=== PATIENT | female | born 1970 | race Caucasian/White ===

== ENCOUNTER 2021-07-22 11:07 | Inpatient (IN) ==
[2021-07-22] MEDS ORDERED: Mag Hydrox/Al Hydrox/Simeth 30 ML UDC PO PRN (13:41)
[2021-07-22] MEDS ORDERED: Melatonin 3 MG TABLET PO PRN (13:41)
[2021-07-22] MEDS ORDERED: Naloxone 0.4 MG/ML INJ IVP PRN (13:41)
[2021-07-22] MEDS ORDERED: Remdesivir 200 MG in 0.9 % Sodium Chloride 100 ML IVPB ONE (14:44)
[2021-07-22] MEDS: Ipratropium 1 PUFF INHALER IH SCH ×2 (15:30→21:30)
[2021-07-22] MEDS: Furosemide 20 MG/2 ML VIAL IVP SCH (17:35)
[2021-07-22 18:02] LABS: C-Reactive Protein 89 mg/L (Less than 10); Lactate Dehydrogenase 433 Units/L (140-271)
[2021-07-22 18:21] LABS: Ferritin 611 ng/mL (10-120)
[2021-07-23] MEDS: clonazePAM 1 MG TABLET PO PRN ×3 (00:20→17:54)
[2021-07-23] MEDS: Ipratropium 1 PUFF INHALER IH SCH ×7 (01:14→23:45)
[2021-07-23 05:24] LABS: Basophils % 0.1 %; Hematocrit 41.9 % (35.3-44.9); Hemoglobin 13.5 g/dL (11.5-15.4); Immature Granulocytes % 0.3 % (0-4); Lymphocytes # 0.5 K/mcL (0.6-4.6); Lymphocytes % 6.4 %; Mean Corpuscular HGB Conc 32.2 g/dL (31.6-35.5); Mean Corpuscular Hemoglobin 27.7 pg (28.0-33.3); Mean Platelet Volume 10.6 fL (9.4-12.4); Monocytes # 0.4 K/mcL (0.0-1.3); Monocytes % 5.5 %; Neutrophils # 6.2 K/mcL (1.6-8.9); Platelet Count 151 K/mcL (140-400); Red Blood Count 4.87 M/mcL (3.82-4.97); Segmented Neutrophils % 87.7 %; White Blood Count 7.1 K/mcL (4.3-11.1)
[2021-07-23 05:47] LABS: Alanine Aminotransferase 27 Units/L (7-52); Albumin 3.3 g/dL (3.5-5.7); Albumin/Globulin Ratio 1.1 (1.1-2.2); Alkaline Phosphatase 45 Units/L (34-104); Aspartate Amino Transferase 34 Units/L (13-39); BUN/Creatinine Ratio 19 (6-26); Bilirubin,Direct 0.1 mg/dL (0.0-0.2); Bilirubin,Indirect 0.4 mg/dL (0.0-1.0); Bilirubin,Total 0.5 mg/dL (0.3-1.0); Blood Urea Nitrogen 17 mg/dL (6-20); Calcium 8.5 mg/dL (8.6-10.3); Carbon Dioxide 34 mEq/L (23-29); Chloride 97 mEq/L (98-107); Globulin 2.9 g/dL (2.4-3.5); Glucose 129 mg/dL (70-105); Osmolality,Calculated 293 (280-300); Potassium 3.2 mEq/L (3.5-5.1); Sodium 140 mEq/L (136-145); Total Protein 6.2 g/dL (6.4-8.9); eGFR For African Americans > 60 (> 60); eGFR For Non-African Americans > 60 (> 60)
[2021-07-23] MEDS: *HR* Enoxaparin 40 MG/0.4 ML SYRINGE SQ SCH (06:26)
[2021-07-23] MEDS: Furosemide 20 MG/2 ML VIAL IVP SCH (08:35)
[2021-07-23] MEDS: Aspirin Enteric Coated 81 MG Tablet PO SCH (08:35)
[2021-07-23] MEDS: Ondansetron ODT 4 MG TAB.RAPDIS SL PRN (12:01)
[2021-07-23] MEDS ORDERED: clonazePAM 1 MG TABLET PO PRN (14:49)
[2021-07-23] MEDS ORDERED: TOCILIZUMAB 810 MG in 0.9 % Sodium Chloride 95.5 ML IVPB ONE (16:00)
[2021-07-23] MEDS: Remdesivir 100 MG in 0.9 % Sodium Chloride 100 ML IVPB SCH (16:04)
[2021-07-23 18:34] LABS: C-Reactive Protein 115 mg/L (Less than 10)
[2021-07-24] MEDS: clonazePAM 1 MG TABLET PO PRN ×3 (01:31→23:08)
[2021-07-24] MEDS: Ondansetron ODT 4 MG TAB.RAPDIS SL PRN (01:32)
[2021-07-24] MEDS: Ipratropium 1 PUFF INHALER IH SCH ×6 (04:47→23:06)
[2021-07-24] MEDS: *HR* Enoxaparin 40 MG/0.4 ML SYRINGE SQ SCH (06:26)
[2021-07-24 08:19] LABS: Basophils % 0.5 %; Hematocrit 45.7 % (35.3-44.9); Hemoglobin 13.9 g/dL (11.5-15.4); Immature Granulocytes % 0.5 % (0-4); Lymphocytes # 0.8 K/mcL (0.6-4.6); Lymphocytes % 12.4 %; Mean Corpuscular HGB Conc 30.4 g/dL (31.6-35.5); Mean Corpuscular Hemoglobin 27.5 pg (28.0-33.3); Mean Corpuscular Volume 90.3 fL (83.0-100.0); Mean Platelet Volume 10.7 fL (9.4-12.4); Monocytes # 0.5 K/mcL (0.0-1.3); Monocytes % 7.2 %; Platelet Count 150 K/mcL (140-400); Red Blood Count 5.06 M/mcL (3.82-4.97); Red Cell Distribution Width 14.3 % (11.5-14.5); Segmented Neutrophils % 79.4 %; White Blood Count 6.4 K/mcL (4.3-11.1)
[2021-07-24 08:25] LABS: Neutrophils # 5.1 K/mcL (1.6-8.9)
[2021-07-24] MEDS: Aspirin Enteric Coated 81 MG Tablet PO SCH (08:51)
[2021-07-24] MEDS: Furosemide 20 MG/2 ML VIAL IVP SCH (08:51)
[2021-07-24 09:08] LABS: Platelet Estimate Normal (Normal)
[2021-07-24] MEDS: GuaiFENesin Liq 200 MG/10 ML UDC PO SCH ×2 (11:38→19:07)
[2021-07-24 11:57] LABS: D-Dimer 6985 ng/mLFEU (0-500)
[2021-07-24 12:13] LABS: Alanine Aminotransferase 38 Units/L (7-52); Albumin 3.2 g/dL (3.5-5.7); Albumin/Globulin Ratio 1.1 (1.1-2.2); Alkaline Phosphatase 52 Units/L (34-104); Aspartate Amino Transferase 41 Units/L (13-39); BUN/Creatinine Ratio 25 (6-26); Bilirubin,Direct 0.2 mg/dL (0.0-0.2); Bilirubin,Indirect 0.4 mg/dL (0.0-1.0); Bilirubin,Total 0.6 mg/dL (0.3-1.0); Blood Urea Nitrogen 23 mg/dL (6-20); C-Reactive Protein 147 mg/L (Less than 10); Calcium 8.2 mg/dL (8.6-10.3); Carbon Dioxide 35 mEq/L (23-29); Chloride 97 mEq/L (98-107); Glucose 138 mg/dL (70-105); Lactate Dehydrogenase 618 Units/L (140-271); Osmolality,Calculated 296 (280-300); Potassium 3.3 mEq/L (3.5-5.1); Sodium 140 mEq/L (136-145); Total Protein 6.2 g/dL (6.4-8.9); eGFR For African Americans > 60 (> 60); eGFR For Non-African Americans > 60 (> 60)
[2021-07-24 12:29] LABS: Ferritin 1070 ng/mL (10-120)
[2021-07-24 13:17] LABS: Fibrinogen 537 mg/dL (169-393)
[2021-07-24] MEDS ORDERED: Isovue-370 500 ML BOTTLE IVP ONE (13:35)
[2021-07-24] MEDS: Remdesivir 100 MG in 0.9 % Sodium Chloride 100 ML IVPB SCH (16:27)
[2021-07-25] MEDS: GuaiFENesin Liq 200 MG/10 ML UDC PO SCH ×4 (01:09→17:18)
[2021-07-25] MEDS: Ipratropium 1 PUFF INHALER IH SCH ×6 (03:44→23:18)
[2021-07-25] MEDS: *HR* Enoxaparin 40 MG/0.4 ML SYRINGE SQ SCH (05:57)
[2021-07-25 06:15] LABS: Basophils % 0.1 %; Hematocrit 40.5 % (35.3-44.9); Immature Granulocytes % 0.6 % (0-4); Lymphocytes # 0.6 K/mcL (0.6-4.6); Lymphocytes % 8.6 %; Mean Corpuscular HGB Conc 32.1 g/dL (31.6-35.5); Mean Corpuscular Hemoglobin 27.7 pg (28.0-33.3); Mean Corpuscular Volume 86.4 fL (83.0-100.0); Mean Platelet Volume 10.7 fL (9.4-12.4); Monocytes # 0.5 K/mcL (0.0-1.3); Monocytes % 6.7 %; Neutrophils # 5.7 K/mcL (1.6-8.9); Platelet Count 153 K/mcL (140-400); Red Blood Count 4.69 M/mcL (3.82-4.97); Red Cell Distribution Width 13.8 % (11.5-14.5); White Blood Count 6.8 K/mcL (4.3-11.1)
[2021-07-25 07:07] LABS: Platelet Estimate Normal (Normal)
[2021-07-25 07:52] LABS: Alanine Aminotransferase 32 Units/L (7-52); Albumin 3.1 g/dL (3.5-5.7); Albumin/Globulin Ratio 1.5 (1.1-2.2); Alkaline Phosphatase 58 Units/L (34-104); Aspartate Amino Transferase 35 Units/L (13-39); BUN/Creatinine Ratio 26 (6-26); Bilirubin,Direct 0.2 mg/dL (0.0-0.2); Bilirubin,Indirect 0.4 mg/dL (0.0-1.0); Bilirubin,Total 0.6 mg/dL (0.3-1.0); Blood Urea Nitrogen 22 mg/dL (6-20); Calcium 8.2 mg/dL (8.6-10.3); Carbon Dioxide 34 mEq/L (23-29); Chloride 98 mEq/L (98-107); Globulin 2.1 g/dL (2.4-3.5); Glucose 133 mg/dL (70-105); Osmolality,Calculated 293 (280-300); Potassium 3.6 mEq/L (3.5-5.1); Sodium 139 mEq/L (136-145); Total Protein 5.2 g/dL (6.4-8.9); eGFR For African Americans > 60 (> 60); eGFR For Non-African Americans > 60 (> 60)
[2021-07-25] MEDS: Furosemide 20 MG/2 ML VIAL IVP SCH ×2 (08:56→11:30)
[2021-07-25] MEDS: Aspirin Enteric Coated 81 MG Tablet PO SCH (08:56)
[2021-07-25] MEDS: clonazePAM 1 MG TABLET PO PRN ×2 (08:57→17:18)
[2021-07-25] MEDS: Remdesivir 100 MG in 0.9 % Sodium Chloride 100 ML IVPB SCH (15:52)
[2021-07-26] MEDS: GuaiFENesin Liq 200 MG/10 ML UDC PO SCH ×5 (05:02→23:23)
[2021-07-26] MEDS: *HR* Enoxaparin 40 MG/0.4 ML SYRINGE SQ SCH (05:11)
[2021-07-26] MEDS: Ipratropium 1 PUFF INHALER IH SCH ×6 (05:12→23:34)
[2021-07-26] MEDS ORDERED: *HR* LORazepam 2 MG/ML VIAL IVP PRN (06:19)
[2021-07-26 07:40] LABS: Hemoglobin 13.3 g/dL (11.5-15.4); Red Cell Distribution Width 13.7 % (11.5-14.5)
[2021-07-26 07:43] LABS: Hematocrit 40.8 % (35.3-44.9); Immature Platelets 8.2 % (1.1-6.1); Lymphocytes # 0.6 K/mcL (0.6-4.6); Mean Corpuscular HGB Conc 32.6 g/dL (31.6-35.5); Mean Corpuscular Hemoglobin 27.7 pg (28.0-33.3)
[2021-07-26 08:09] LABS: Platelet Count 93 K/mcL (140-400)
[2021-07-26 09:14] LABS: Eosinophils # 0.1 K/mcL (0.0-0.6); Monocytes # 0.1 K/mcL (0.0-1.3); Neutrophils # 7.3 K/mcL (1.6-8.9); Platelet Estimate Slight Decrease (Normal); Reactive Lymphocytes Present (Not Present)
[2021-07-26] MEDS: Aspirin Enteric Coated 81 MG Tablet PO SCH (09:50)
[2021-07-26] MEDS: Furosemide 20 MG/2 ML VIAL IVP SCH (09:51)
[2021-07-26 10:56] LABS: Ferritin 934 ng/mL (10-120)
[2021-07-26 10:59] LABS: Albumin 2.9 g/dL (3.5-5.7); Albumin/Globulin Ratio 1.1 (1.1-2.2); Bilirubin,Direct 0.3 mg/dL (0.0-0.2); Bilirubin,Indirect 0.8 mg/dL (0.0-1.0); Bilirubin,Total 1.1 mg/dL (0.3-1.0); Globulin 2.6 g/dL (2.4-3.5); Total Protein 5.5 g/dL (6.4-8.9)
[2021-07-26 11:01] LABS: Phosphorous 3.3 mg/dL (2.7-4.5)
[2021-07-26] MEDS ORDERED: *HR* Heparin 5,000 UNIT/ML VIAL IVP PRN ×4 (11:45→13:04)
[2021-07-26] MEDS ORDERED: Heparin 25,000UNIT/250ML 1/2NS 25,000 UNIT/250 ML IV.SOLN IVC SCH (11:45)
[2021-07-26 12:58] LABS: Magnesium 2.4 mg/dL (1.6-2.6)
[2021-07-26] MEDS ORDERED: *HR* Enoxaparin 150 MG/ML SYRINGE SQ SCH (13:00)
[2021-07-26] MEDS ORDERED: Lidocaine -MPF 1% 5 ML AMPUL INFILT ONE (14:00)
[2021-07-26 14:42] LABS: Calcium 7.7 mg/dL (8.6-10.3)
[2021-07-26 14:43] LABS: BUN/Creatinine Ratio 30 (6-26); Blood Urea Nitrogen 27 mg/dL (6-20); Carbon Dioxide 31 mEq/L (23-29); Chloride 98 mEq/L (98-107); Glucose 122 mg/dL (70-105); Lactate Dehydrogenase 1003 Units/L (140-271); Osmolality,Calculated 296 (280-300); Potassium 3.5 mEq/L (3.5-5.1); Sodium 140 mEq/L (136-145); eGFR For African Americans > 60 (> 60); eGFR For Non-African Americans > 60 (> 60)
[2021-07-26 15:27] LABS: C-Reactive Protein 43 mg/L (Less than 10)
[2021-07-26] MEDS ORDERED: Midazolam HCl 50 MG/100 ML IV.SOLN IVC SCH (15:30)
[2021-07-26] MEDS ORDERED: Artificial Tears SOLN 15 ML BOTTLE BOTH EYES PRN (15:30)
[2021-07-26] MEDS ORDERED: FentaNYL (PF) 1,000 MCG/100 ML IV.SOLN IVC SCH (15:30)
[2021-07-26] MEDS ORDERED: Cisatracurium 200 MG in 0.9 % Sodium Chloride 180 ML IVC SCH (15:45)
[2021-07-26] MEDS: Heparin 25,000UNIT/250ML 1/2NS 25,000 UNIT/250 ML IV.SOLN IVC SCH (17:00)
[2021-07-26] MEDS: Dexmedetomidine HCl 400 MCG/100 ML MLS IVC SCH (17:46)
[2021-07-26] MEDS: Artificial Tears SOLN 15 ML BOTTLE BOTH EYES SCH ×3 (17:47→23:23)
[2021-07-26] MEDS: Chlorhexidine Rinse 15 ML MOUTHWASH MM SCH (19:46)
[2021-07-27] MEDS: Dexmedetomidine HCl 400 MCG/100 ML MLS IVC SCH ×3 (01:33→17:01)
[2021-07-27] MEDS: Ipratropium 1 PUFF INHALER IH SCH ×6 (03:31→23:29)
[2021-07-27] MEDS: Artificial Tears SOLN 15 ML BOTTLE BOTH EYES SCH ×6 (04:19→23:05)
[2021-07-27 04:22] LABS: Basophils % 0.3 %; Hemoglobin 13.9 g/dL (11.5-15.4); Mean Corpuscular HGB Conc 33.1 g/dL (31.6-35.5); Red Cell Distribution Width 13.7 % (11.5-14.5)
[2021-07-27 04:25] LABS: Eosinophils % 0.3 %; Immature Granulocytes % 1.9 % (0-4); Immature Platelets 7.5 % (1.1-6.1); Lymphocytes # 0.6 K/mcL (0.6-4.6); Lymphocytes % 7.7 %; Mean Corpuscular Volume 84.7 fL (83.0-100.0); Mean Platelet Volume 11.6 fL (9.4-12.4); Monocytes # 0.2 K/mcL (0.0-1.3); Monocytes % 2.7 %; Neutrophils # 6.8 K/mcL (1.6-8.9); Platelet Count 104 K/mcL (140-400); Red Blood Count 4.96 M/mcL (3.82-4.97); Segmented Neutrophils % 87.1 %; White Blood Count 7.8 K/mcL (4.3-11.1)
[2021-07-27] MEDS: GuaiFENesin Liq 200 MG/10 ML UDC PO SCH ×4 (04:32→19:27)
[2021-07-27 04:47] LABS: Alanine Aminotransferase 26 Units/L (7-52); Albumin 2.9 g/dL (3.5-5.7); Albumin/Globulin Ratio 1.3 (1.1-2.2); Alkaline Phosphatase 90 Units/L (34-104); Aspartate Amino Transferase 35 Units/L (13-39); BUN/Creatinine Ratio 35 (6-26); Bilirubin,Total 0.8 mg/dL (0.3-1.0); Blood Urea Nitrogen 29 mg/dL (6-20); Calcium 7.5 mg/dL (8.6-10.3); Carbon Dioxide 34 mEq/L (23-29); Chloride 100 mEq/L (98-107); Globulin 2.2 g/dL (2.4-3.5); Glucose 140 mg/dL (70-105); Lactate Dehydrogenase 994 Units/L (140-271); Osmolality,Calculated 298 (280-300); Potassium 3.6 mEq/L (3.5-5.1); Sodium 140 mEq/L (136-145); Total Protein 5.1 g/dL (6.4-8.9); eGFR For African Americans > 60 (> 60); eGFR For Non-African Americans > 60 (> 60)
[2021-07-27 05:03] LABS: Ferritin 1052 ng/mL (10-120)
[2021-07-27] MEDS: Heparin 25,000UNIT/250ML 1/2NS 25,000 UNIT/250 ML IV.SOLN IVC SCH ×3 (08:33→21:11)
[2021-07-27] MEDS: Aspirin Enteric Coated 81 MG Tablet PO SCH (08:34)
[2021-07-27] MEDS: Pantoprazole 40 MG VIAL IVP SCH (08:38)
[2021-07-27] MEDS: Chlorhexidine Rinse 15 ML MOUTHWASH MM SCH ×2 (08:38→19:20)
[2021-07-27] MEDS: Furosemide 20 MG/2 ML VIAL IVP SCH (08:38)
[2021-07-27] MEDS ORDERED: Furosemide 20 MG/2 ML VIAL IVP ONE (09:46)
[2021-07-27] MEDS ORDERED: Perflutren Lipid Microsphere 1.3 ML in 0.9 % Sodium Chloride 8.7 ML IVP PRN (11:33)
[2021-07-27] MEDS ORDERED: Artificial Tears SOLN 15 ML BOTTLE BOTH EYES PRN (11:34)
[2021-07-27] MEDS ORDERED: Artificial Tears SOLN 15 ML BOTTLE BOTH EYES SCH (12:00)
[2021-07-27] MEDS: Cisatracurium 200 MG in 0.9 % Sodium Chloride 180 ML IVC SCH ×2 (13:10→20:02)
[2021-07-27] MEDS: Midazolam HCl 50 MG/100 ML IV.SOLN IVC SCH (13:10)
[2021-07-27] MEDS: FentaNYL (PF) 1,000 MCG/100 ML IV.SOLN IVC SCH ×2 (13:10→21:08)
[2021-07-27 13:44] LABS: ABG Base Excess 7 mEq/L (-2 to 3); ABG HCO3 34 mEq/L (21-27); ABG Oxygen Saturation 93 % (95-98); ABG PCO2 56 mmHg (35-45); ABG PH 7.39 pH Units (7.32-7.45); ABG PO2 69 mmHg (85-104); ABG TCO2 35 mEq/L (20-26); Blood Gas Modality ASSIST CONTROL; Blood Gas VT 430 cc
[2021-07-27] MEDS: Norepinephrine 4 MG/254 ML IV.SOLN IVC SCH ×2 (16:10→17:02)
[2021-07-27 17:00] LABS: Magnesium 2.4 mg/dL (1.6-2.6)
[2021-07-27] MEDS: Furosemide 40 MG/4 ML VIAL IVP SCH (19:20)
[2021-07-27] MEDS: Budesonide/Formoterol 160/4.5 1 PUFF INH IH SCH (20:15)
[2021-07-27] MEDS ORDERED: Chlorhexidine Rinse 15 ML MOUTHWASH MM SCH (21:00)
[2021-07-27 23:34] LABS: ABG Base Excess 7 mEq/L (-2 to 3); ABG HCO3 35 mEq/L (21-27); ABG Oxygen Saturation 94 % (95-98); ABG PCO2 62 mmHg (35-45); ABG PH 7.36 pH Units (7.32-7.45); ABG PO2 76 mmHg (85-104); ABG TCO2 37 mEq/L (20-26); Blood Gas VT 430 cc
[2021-07-28] MEDS: Artificial Tears SOLN 15 ML BOTTLE BOTH EYES SCH ×6 (03:04→23:00)
[2021-07-28 03:20] LABS: Eosinophils % 0.5 %; Hemoglobin 13.7 g/dL (11.5-15.4)
[2021-07-28 03:22] LABS: Basophils % 0.2 %; Hematocrit 41.9 % (35.3-44.9); Immature Platelets 5.2 % (1.1-6.1); Lymphocytes # 0.5 K/mcL (0.6-4.6); Lymphocytes % 6.3 %; Mean Corpuscular HGB Conc 32.7 g/dL (31.6-35.5); Mean Corpuscular Hemoglobin 27.8 pg (28.0-33.3); Mean Corpuscular Volume 85.2 fL (83.0-100.0); Monocytes # 0.2 K/mcL (0.0-1.3); Monocytes % 2.6 %; Neutrophils # 7.3 K/mcL (1.6-8.9); Platelet Count 133 K/mcL (140-400); Red Blood Count 4.92 M/mcL (3.82-4.97); Red Cell Distribution Width 13.7 % (11.5-14.5); Segmented Neutrophils % 85.4 %; White Blood Count 8.6 K/mcL (4.3-11.1)
[2021-07-28] MEDS: Ipratropium 1 PUFF INHALER IH SCH ×5 (03:27→19:26)
[2021-07-28 03:35] LABS: BUN/Creatinine Ratio 40 (6-26); Blood Urea Nitrogen 33 mg/dL (6-20); Calcium 7.6 mg/dL (8.6-10.3); Carbon Dioxide 36 mEq/L (23-29); Chloride 98 mEq/L (98-107); Glucose 147 mg/dL (70-105); Magnesium 2.5 mg/dL (1.6-2.6); Osmolality,Calculated 302 (280-300); Phosphorous 4.2 mg/dL (2.7-4.5); Potassium 3.4 mEq/L (3.5-5.1); Sodium 141 mEq/L (136-145); eGFR For African Americans > 60 (> 60); eGFR For Non-African Americans > 60 (> 60)
[2021-07-28] MEDS: Cisatracurium 200 MG in 0.9 % Sodium Chloride 180 ML IVC SCH ×3 (04:00→20:39)
[2021-07-28 04:10] LABS: ABG Base Excess 8 mEq/L (-2 to 3); ABG HCO3 35 mEq/L (21-27); ABG Oxygen Saturation 91 % (95-98); ABG PCO2 55 mmHg (35-45); ABG PH 7.41 pH Units (7.32-7.45); ABG PO2 62 mmHg (85-104); ABG TCO2 36 mEq/L (20-26); Blood Gas VT 430 cc
[2021-07-28] MEDS: Dexmedetomidine HCl 400 MCG/100 ML MLS IVC SCH ×2 (05:02→19:09)
[2021-07-28] MEDS ORDERED: Potassium Chloride Elixir 20 MEQ/15 ML UDC GTUBE ONE (06:15)
[2021-07-28] MEDS: FentaNYL (PF) 1,000 MCG/100 ML IV.SOLN IVC SCH ×2 (06:41→16:41)
[2021-07-28] MEDS: Budesonide/Formoterol 160/4.5 1 PUFF INH IH SCH ×2 (07:36→19:26)
[2021-07-28] MEDS: Aspirin Enteric Coated 81 MG Tablet PO SCH (08:29)
[2021-07-28] MEDS: Dexamethasone Sodium Phos/PF 10 MG/ML VIAL IVP SCH (08:29)
[2021-07-28] MEDS: Chlorhexidine Rinse 15 ML MOUTHWASH MM SCH ×2 (08:29→19:39)
[2021-07-28] MEDS: Furosemide 40 MG/4 ML VIAL IVP SCH ×2 (08:30→19:39)
[2021-07-28] MEDS: Pantoprazole 40 MG VIAL IVP SCH (08:31)
[2021-07-28] MEDS: GuaiFENesin Liq 200 MG/10 ML UDC PO SCH ×3 (12:16→22:56)
[2021-07-28] MEDS: Midazolam HCl 50 MG/100 ML IV.SOLN IVC SCH (13:00)
[2021-07-28] MEDS ORDERED: 0.9 % Sodium Chloride 1,000 ML ONE (14:12)
[2021-07-28 17:09] LABS: BUN/Creatinine Ratio 34 (6-26); Blood Urea Nitrogen 30 mg/dL (6-20); Calcium 7.2 mg/dL (8.6-10.3); Carbon Dioxide 32 mEq/L (23-29); Chloride 99 mEq/L (98-107); Glucose 171 mg/dL (70-105); Osmolality,Calculated 302 (280-300); Sodium 141 mEq/L (136-145); eGFR For African Americans > 60 (> 60); eGFR For Non-African Americans > 60 (> 60)
[2021-07-28] MEDS ORDERED: *HR* Rocuronium Bromide 50 MG/5 ML VIAL IVP ONE (18:34)
[2021-07-28] MEDS ORDERED: *HR* Succinylcholine 200 MG/10 ML VIAL IVP ONE (18:34)
[2021-07-28] MEDS ORDERED: *HR* Midazolam HCl 2 MG/2 ML VIAL IVP ONE (18:34)
[2021-07-28] MEDS: Heparin 25,000UNIT/250ML 1/2NS 25,000 UNIT/250 ML IV.SOLN IVC SCH ×2 (19:09→23:00)
[2021-07-29] MEDS: Ipratropium 1 PUFF INHALER IH SCH ×7 (00:12→23:45)
[2021-07-29] MEDS: FentaNYL (PF) 1,000 MCG/100 ML IV.SOLN IVC SCH ×3 (02:03→23:06)
[2021-07-29] MEDS: Artificial Tears SOLN 15 ML BOTTLE BOTH EYES SCH ×6 (03:05→23:06)
[2021-07-29] MEDS: Cisatracurium 200 MG in 0.9 % Sodium Chloride 180 ML IVC SCH ×3 (03:14→20:01)
[2021-07-29] MEDS: Midazolam HCl 50 MG/100 ML IV.SOLN IVC SCH ×2 (03:15→19:30)
[2021-07-29 03:26] LABS: Basophils # 0.1 K/mcL (0.0-0.2); Basophils % 0.6 %; Eosinophils # 0.1 K/mcL (0.0-0.6); Eosinophils % 0.6 %; Hematocrit 43.4 % (35.3-44.9); Hemoglobin 14.1 g/dL (11.5-15.4); Immature Granulocytes % 5.3 % (0-4); Lymphocytes # 0.8 K/mcL (0.6-4.6); Lymphocytes % 5.2 %; Mean Corpuscular HGB Conc 32.5 g/dL (31.6-35.5); Mean Corpuscular Volume 86.1 fL (83.0-100.0); Monocytes # 0.5 K/mcL (0.0-1.3); Monocytes % 3.1 %; Neutrophils # 13.6 K/mcL (1.6-8.9); Nucleated Red Blood Cells 0.1 /100 WBC (0); Platelet Count 193 K/mcL (140-400); Red Blood Count 5.04 M/mcL (3.82-4.97); Segmented Neutrophils % 85.2 %
[2021-07-29 03:37] LABS: White Blood Count 15.9 K/mcL (4.3-11.1)
[2021-07-29 03:38] LABS: Alanine Aminotransferase 118 Units/L (7-52); Albumin 3.2 g/dL (3.5-5.7); Albumin/Globulin Ratio 1.5 (1.1-2.2); Alkaline Phosphatase 101 Units/L (34-104); Aspartate Amino Transferase 57 Units/L (13-39); BUN/Creatinine Ratio 41 (6-26); Blood Urea Nitrogen 35 mg/dL (6-20); Calcium 7.7 mg/dL (8.6-10.3); Carbon Dioxide 34 mEq/L (23-29); Chloride 99 mEq/L (98-107); Globulin 2.1 g/dL (2.4-3.5); Glucose 161 mg/dL (70-105); Magnesium 2.7 mg/dL (1.6-2.6); Osmolality,Calculated 303 (280-300); Phosphorous 3.5 mg/dL (2.7-4.5); Potassium 3.9 mEq/L (3.5-5.1); Sodium 141 mEq/L (136-145); Total Protein 5.3 g/dL (6.4-8.9); eGFR For African Americans > 60 (> 60); eGFR For Non-African Americans > 60 (> 60)
[2021-07-29 04:18] LABS: Platelet Estimate Normal (Normal)
[2021-07-29 04:39] LABS: ABG Base Excess 8 mEq/L (-2 to 3); ABG HCO3 35 mEq/L (21-27); ABG Oxygen Saturation 94 % (95-98); ABG PCO2 54 mmHg (35-45); ABG PH 7.42 pH Units (7.32-7.45); ABG PO2 72 mmHg (85-104); ABG TCO2 37 mEq/L (20-26); Blood Gas VT 430 cc
[2021-07-29] MEDS: Budesonide/Formoterol 160/4.5 1 PUFF INH IH SCH ×2 (07:57→19:57)
[2021-07-29] MEDS: Furosemide 40 MG/4 ML VIAL IVP SCH ×2 (08:33→19:31)
[2021-07-29] MEDS: Aspirin Enteric Coated 81 MG Tablet PO SCH (08:33)
[2021-07-29] MEDS: Dexamethasone Sodium Phos/PF 10 MG/ML VIAL IVP SCH (08:33)
[2021-07-29] MEDS: Pantoprazole 40 MG VIAL IVP SCH (08:33)
[2021-07-29] MEDS: Chlorhexidine Rinse 15 ML MOUTHWASH MM SCH ×2 (08:34→19:31)
[2021-07-29] MEDS: Dexmedetomidine HCl 400 MCG/100 ML MLS IVC SCH ×2 (09:20→17:35)
[2021-07-29] MEDS: GuaiFENesin Liq 200 MG/10 ML UDC PO SCH ×3 (15:45→20:00)
[2021-07-29] MEDS: Norepinephrine 4 MG/254 ML IV.SOLN IVC SCH (19:01)
[2021-07-29] MEDS: Heparin 25,000UNIT/250ML 1/2NS 25,000 UNIT/250 ML IV.SOLN IVC SCH (19:02)
[2021-07-30] MEDS: Cisatracurium 200 MG in 0.9 % Sodium Chloride 180 ML IVC SCH ×3 (03:21→22:03)
[2021-07-30] MEDS: Artificial Tears SOLN 15 ML BOTTLE BOTH EYES SCH ×6 (03:21→23:55)
[2021-07-30] MEDS: Ipratropium 1 PUFF INHALER IH SCH ×5 (03:33→20:27)
[2021-07-30 03:38] LABS: VBG Ionized Calcium 1.01 mmol/L (1.15-1.35)
[2021-07-30 03:43] LABS: Basophils # 0.1 K/mcL (0.0-0.2); Basophils % 0.7 %; Eosinophils # 0.1 K/mcL (0.0-0.6); Eosinophils % 0.6 %; Hematocrit 43.4 % (35.3-44.9); Hemoglobin 13.5 g/dL (11.5-15.4); Lymphocytes # 0.7 K/mcL (0.6-4.6); Lymphocytes % 5.4 %; Mean Corpuscular HGB Conc 31.1 g/dL (31.6-35.5); Mean Corpuscular Hemoglobin 27.3 pg (28.0-33.3); Mean Corpuscular Volume 87.9 fL (83.0-100.0); Mean Platelet Volume 11.6 fL (9.4-12.4); Monocytes # 0.4 K/mcL (0.0-1.3); Monocytes % 2.9 %; Neutrophils # 11.5 K/mcL (1.6-8.9); Nucleated Red Blood Cells 0.1 /100 WBC (0); Platelet Count 180 K/mcL (140-400); Red Blood Count 4.94 M/mcL (3.82-4.97); Red Cell Distribution Width 14.2 % (11.5-14.5); Segmented Neutrophils % 84.4 %; White Blood Count 13.6 K/mcL (4.3-11.1)
[2021-07-30 03:55] LABS: BUN/Creatinine Ratio 49 (6-26); Blood Urea Nitrogen 45 mg/dL (6-20); Calcium 7.7 mg/dL (8.6-10.3); Carbon Dioxide 32 mEq/L (23-29); Chloride 101 mEq/L (98-107); Glucose 140 mg/dL (70-105); Magnesium 2.8 mg/dL (1.6-2.6); Osmolality,Calculated 312 (280-300); Phosphorous 4.6 mg/dL (2.7-4.5); Potassium 3.9 mEq/L (3.5-5.1); Sodium 144 mEq/L (136-145); eGFR For African Americans > 60 (> 60); eGFR For Non-African Americans > 60 (> 60)
[2021-07-30] MEDS: Dexmedetomidine HCl 400 MCG/100 ML MLS IVC SCH ×2 (04:05→17:34)
[2021-07-30] MEDS: Heparin 25,000UNIT/250ML 1/2NS 25,000 UNIT/250 ML IV.SOLN IVC SCH ×2 (04:05→19:25)
[2021-07-30 04:27] LABS: ABG Base Excess 7 mEq/L (-2 to 3); ABG HCO3 33 mEq/L (21-27); ABG Oxygen Saturation 91 % (95-98); ABG PCO2 54 mmHg (35-45); ABG PO2 63 mmHg (85-104); ABG TCO2 35 mEq/L (20-26); Blood Gas VT 430 cc
[2021-07-30 04:35] LABS: Platelet Estimate Normal (Normal)
[2021-07-30] MEDS: Calcium Gluconate 1gm/50mL 1 GM/50 ML BAG IVPB SCH ×2 (05:36→06:13)
[2021-07-30] MEDS: Budesonide/Formoterol 160/4.5 1 PUFF INH IH SCH ×2 (07:14→20:27)
[2021-07-30] MEDS: Furosemide 40 MG/4 ML VIAL IVP SCH ×2 (07:37→19:28)
[2021-07-30] MEDS: Dexamethasone Sodium Phos/PF 10 MG/ML VIAL IVP SCH (07:37)
[2021-07-30] MEDS: Chlorhexidine Rinse 15 ML MOUTHWASH MM SCH ×2 (07:37→19:28)
[2021-07-30] MEDS: Pantoprazole 40 MG VIAL IVP SCH (07:39)
[2021-07-30] MEDS: Aspirin Enteric Coated 81 MG Tablet PO SCH (07:39)
[2021-07-30] MEDS: Norepinephrine 4 MG/254 ML IV.SOLN IVC SCH (10:05)
[2021-07-30] MEDS: FentaNYL (PF) 1,000 MCG/100 ML IV.SOLN IVC SCH ×2 (10:18→20:26)
[2021-07-30] MEDS: Midazolam HCl 50 MG/100 ML IV.SOLN IVC SCH (12:09)
[2021-07-31] MEDS: Ipratropium 1 PUFF INHALER IH SCH ×6 (00:09→20:32)
[2021-07-31] MEDS: Artificial Tears SOLN 15 ML BOTTLE BOTH EYES SCH ×7 (03:22→23:25)
[2021-07-31 03:56] LABS: Hematocrit 41.9 % (35.3-44.9); Hemoglobin 13.1 g/dL (11.5-15.4); Mean Corpuscular HGB Conc 31.3 g/dL (31.6-35.5); Mean Corpuscular Hemoglobin 27.8 pg (28.0-33.3); Mean Platelet Volume 11.2 fL (9.4-12.4); Platelet Count 176 K/mcL (140-400); Red Blood Count 4.71 M/mcL (3.82-4.97); Red Cell Distribution Width 14.2 % (11.5-14.5); White Blood Count 16.4 K/mcL (4.3-11.1)
[2021-07-31 04:09] LABS: Alanine Aminotransferase 63 Units/L (7-52); Albumin 3.2 g/dL (3.5-5.7); Albumin/Globulin Ratio 1.5 (1.1-2.2); Alkaline Phosphatase 77 Units/L (34-104); Aspartate Amino Transferase 32 Units/L (13-39); BUN/Creatinine Ratio 62 (6-26); Bilirubin,Total 0.8 mg/dL (0.3-1.0); Blood Urea Nitrogen 49 mg/dL (6-20); Carbon Dioxide 38 mEq/L (23-29); Chloride 102 mEq/L (98-107); Globulin 2.2 g/dL (2.4-3.5); Glucose 149 mg/dL (70-105); Osmolality,Calculated 316 (280-300); Potassium 4.1 mEq/L (3.5-5.1); Sodium 145 mEq/L (136-145); Total Protein 5.4 g/dL (6.4-8.9); eGFR For African Americans > 60 (> 60); eGFR For Non-African Americans > 60 (> 60)
[2021-07-31 04:41] LABS: ABG Base Excess 11 mEq/L (-2 to 3); ABG HCO3 40 mEq/L (21-27); ABG Oxygen Saturation 91 % (95-98); ABG PCO2 70 mmHg (35-45); ABG PH 7.36 pH Units (7.32-7.45); ABG PO2 65 mmHg (85-104); ABG TCO2 42 mEq/L (20-26); Blood Gas Modality ASSIST CONTROL; Blood Gas VT 430 cc
[2021-07-31] MEDS: Midazolam HCl 50 MG/100 ML IV.SOLN IVC SCH ×2 (04:55→21:09)
[2021-07-31] MEDS: Cisatracurium 200 MG in 0.9 % Sodium Chloride 180 ML IVC SCH ×3 (05:59→23:49)
[2021-07-31] MEDS: FentaNYL (PF) 1,000 MCG/100 ML IV.SOLN IVC SCH ×3 (05:59→23:48)
[2021-07-31] MEDS: Dexmedetomidine HCl 400 MCG/100 ML MLS IVC SCH ×2 (07:19→17:20)
[2021-07-31] MEDS: Pantoprazole 40 MG VIAL IVP SCH (07:24)
[2021-07-31] MEDS: Chlorhexidine Rinse 15 ML MOUTHWASH MM SCH ×2 (07:25→19:26)
[2021-07-31] MEDS: Budesonide/Formoterol 160/4.5 1 PUFF INH IH SCH ×2 (07:25→20:32)
[2021-07-31] MEDS: Dexamethasone Sodium Phos/PF 10 MG/ML VIAL IVP SCH (07:25)
[2021-07-31] MEDS: Aspirin 81 MG TAB.CHEW GTUBE SCH (07:25)
[2021-07-31] MEDS: Furosemide 40 MG/4 ML VIAL IVP SCH ×2 (07:25→19:26)
[2021-07-31] MEDS ORDERED: D5% in Water 1,000 ML IVC PRN (12:04)
[2021-07-31] MEDS ORDERED: Dextrose Gel 15 GM/37.5 ML TUBE PO PRN ×2 (12:04)
[2021-07-31] MEDS ORDERED: *HR* Dextrose 50 % in Water (Syg) 50 ML SYRINGE IVP PRN (12:04)
[2021-07-31] MEDS: Insulin LISPRO 300 UNITS/3 ML VIAL SUBQ SCH ×4 (12:56→23:47)
[2021-07-31] MEDS: Heparin 25,000UNIT/250ML 1/2NS 25,000 UNIT/250 ML IV.SOLN IVC SCH ×2 (17:19→19:23)
[2021-07-31] MEDS: Norepinephrine 4 MG/254 ML IV.SOLN IVC SCH (17:22)
[2021-08-01] MEDS: Ipratropium 1 PUFF INHALER IH SCH ×5 (00:18→22:02)
[2021-08-01] MEDS: Dexmedetomidine HCl 400 MCG/100 ML MLS IVC SCH ×3 (04:15→23:11)
[2021-08-01] MEDS: Insulin LISPRO 300 UNITS/3 ML VIAL SUBQ SCH ×5 (04:16→21:18)
[2021-08-01] MEDS: Artificial Tears SOLN 15 ML BOTTLE BOTH EYES SCH ×5 (04:16→21:01)
[2021-08-01 04:39] LABS: ABG Base Excess 12 mEq/L (-2 to 3); ABG HCO3 40 mEq/L (21-27); ABG Oxygen Saturation 91 % (95-98); ABG PCO2 65 mmHg (35-45); ABG PH 7.39 pH Units (7.32-7.45); ABG PO2 65 mmHg (85-104); ABG TCO2 42 mEq/L (20-26); Blood Gas Modality ASSIST CONTROL; Blood Gas VT 430 cc
[2021-08-01 04:41] LABS: Hematocrit 43.2 % (35.3-44.9); Hemoglobin 13.5 g/dL (11.5-15.4); Mean Corpuscular HGB Conc 31.3 g/dL (31.6-35.5); Mean Corpuscular Volume 89.4 fL (83.0-100.0); Mean Platelet Volume 11.2 fL (9.4-12.4); Platelet Count 187 K/mcL (140-400); Red Blood Count 4.83 M/mcL (3.82-4.97); Red Cell Distribution Width 14.2 % (11.5-14.5); White Blood Count 18.5 K/mcL (4.3-11.1)
[2021-08-01 04:57] LABS: Alanine Aminotransferase 71 Units/L (7-52); Albumin 3.4 g/dL (3.5-5.7); Albumin/Globulin Ratio 1.6 (1.1-2.2); Alkaline Phosphatase 80 Units/L (34-104); Aspartate Amino Transferase 39 Units/L (13-39); BUN/Creatinine Ratio 71 (6-26); Bilirubin,Total 0.9 mg/dL (0.3-1.0); Blood Urea Nitrogen 50 mg/dL (6-20); Calcium 8.6 mg/dL (8.6-10.3); Carbon Dioxide 41 mEq/L (23-29); Chloride 102 mEq/L (98-107); Globulin 2.1 g/dL (2.4-3.5); Glucose 127 mg/dL (70-105); Osmolality,Calculated 321 (280-300); Potassium 4.2 mEq/L (3.5-5.1); Sodium 148 mEq/L (136-145); Total Protein 5.5 g/dL (6.4-8.9); eGFR For African Americans > 60 (> 60); eGFR For Non-African Americans > 60 (> 60)
[2021-08-01] MEDS: FentaNYL (PF) 1,000 MCG/100 ML IV.SOLN IVC SCH ×3 (07:50→21:30)
[2021-08-01] MEDS: Cisatracurium 200 MG in 0.9 % Sodium Chloride 180 ML IVC SCH ×2 (07:51→16:41)
[2021-08-01] MEDS: Chlorhexidine Rinse 15 ML MOUTHWASH MM SCH ×2 (07:53→21:02)
[2021-08-01] MEDS: Dexamethasone Sodium Phos/PF 10 MG/ML VIAL IVP SCH (07:53)
[2021-08-01] MEDS: Aspirin 81 MG TAB.CHEW GTUBE SCH (07:53)
[2021-08-01] MEDS: Furosemide 40 MG/4 ML VIAL IVP SCH ×2 (07:54→21:00)
[2021-08-01] MEDS: Pantoprazole 40 MG VIAL IVP SCH (07:54)
[2021-08-01] MEDS: Budesonide/Formoterol 160/4.5 1 PUFF INH IH SCH ×2 (08:20→22:02)
[2021-08-01] MEDS: Norepinephrine 4 MG/254 ML IV.SOLN IVC SCH (11:12)
[2021-08-01] MEDS: Midazolam HCl 50 MG/100 ML IV.SOLN IVC SCH (14:12)
[2021-08-02] MEDS: Artificial Tears SOLN 15 ML BOTTLE BOTH EYES SCH ×6 (00:39→19:52)
[2021-08-02] MEDS: Insulin LISPRO 300 UNITS/3 ML VIAL SUBQ SCH ×6 (00:39→20:17)
[2021-08-02] MEDS: Cisatracurium 200 MG in 0.9 % Sodium Chloride 180 ML IVC SCH ×2 (01:38→17:31)
[2021-08-02] MEDS: Midazolam HCl 50 MG/100 ML IV.SOLN IVC SCH ×3 (02:50→21:28)
[2021-08-02] MEDS: Ipratropium 1 PUFF INHALER IH SCH ×4 (03:57→21:31)
[2021-08-02 04:11] LABS: ABG Base Excess 10 mEq/L (-2 to 3); ABG HCO3 37 mEq/L (21-27); ABG Oxygen Saturation 93 % (95-98); ABG PCO2 58 mmHg (35-45); ABG PH 7.41 pH Units (7.32-7.45); ABG PO2 69 mmHg (85-104); ABG TCO2 39 mEq/L (20-26); Blood Gas VT 430 cc
[2021-08-02] MEDS: FentaNYL (PF) 1,000 MCG/100 ML IV.SOLN IVC SCH ×4 (04:54→21:53)
[2021-08-02] MEDS: Dexmedetomidine HCl 400 MCG/100 ML MLS IVC SCH ×4 (05:06→20:41)
[2021-08-02 05:53] LABS: Hematocrit 42.1 % (35.3-44.9); Hemoglobin 12.7 g/dL (11.5-15.4); Mean Corpuscular HGB Conc 30.2 g/dL (31.6-35.5); Mean Corpuscular Hemoglobin 27.9 pg (28.0-33.3); Mean Corpuscular Volume 92.5 fL (83.0-100.0); Mean Platelet Volume 11.6 fL (9.4-12.4); Platelet Count 166 K/mcL (140-400); Red Blood Count 4.55 M/mcL (3.82-4.97); Red Cell Distribution Width 14.6 % (11.5-14.5)
[2021-08-02 06:11] LABS: Alanine Aminotransferase 117 Units/L (7-52); Albumin 3.3 g/dL (3.5-5.7); Albumin/Globulin Ratio 1.6 (1.1-2.2); Alkaline Phosphatase 84 Units/L (34-104); Aspartate Amino Transferase 68 Units/L (13-39); BUN/Creatinine Ratio 65 (6-26); Bilirubin,Total 0.9 mg/dL (0.3-1.0); Blood Urea Nitrogen 53 mg/dL (6-20); Calcium 8.6 mg/dL (8.6-10.3); Carbon Dioxide 42 mEq/L (23-29); Chloride 100 mEq/L (98-107); Globulin 2.1 g/dL (2.4-3.5); Glucose 136 mg/dL (70-105); Osmolality,Calculated 320 (280-300); Potassium 4.8 mEq/L (3.5-5.1); Sodium 147 mEq/L (136-145); Total Protein 5.4 g/dL (6.4-8.9); eGFR For African Americans > 60 (> 60); eGFR For Non-African Americans > 60 (> 60)
[2021-08-02] MEDS: Heparin 25,000UNIT/250ML 1/2NS 25,000 UNIT/250 ML IV.SOLN IVC SCH (07:24)
[2021-08-02] MEDS: Aspirin 81 MG TAB.CHEW GTUBE SCH (07:46)
[2021-08-02] MEDS: Chlorhexidine Rinse 15 ML MOUTHWASH MM SCH ×2 (07:46→19:51)
[2021-08-02] MEDS: Furosemide 40 MG/4 ML VIAL IVP SCH ×2 (07:46→19:51)
[2021-08-02] MEDS: Pantoprazole 40 MG VIAL IVP SCH (07:47)
[2021-08-02] MEDS: Budesonide/Formoterol 160/4.5 1 PUFF INH IH SCH ×2 (07:51→21:31)
[2021-08-02] MEDS: Docusate Oral Soln 100 MG/10 ML UDC GTUBE SCH (19:51)
[2021-08-02] MEDS: Norepinephrine 4 MG/254 ML IV.SOLN IVC SCH ×2 (19:52→23:45)
[2021-08-02 21:29] LABS: ABG Base Excess 12 mEq/L (-2 to 3); ABG HCO3 41 mEq/L (21-27); ABG Oxygen Saturation 81 % (95-98); ABG PCO2 73 mmHg (35-45); ABG PH 7.35 pH Units (7.32-7.45); ABG PO2 50 mmHg (85-104); ABG TCO2 43 mEq/L (20-26); Blood Gas VT 430 cc
[2021-08-03] MEDS: Dexmedetomidine HCl 400 MCG/100 ML MLS IVC SCH ×8 (00:44→22:38)
[2021-08-03] MEDS: Artificial Tears SOLN 15 ML BOTTLE BOTH EYES SCH ×6 (00:47→21:01)
[2021-08-03] MEDS: Insulin LISPRO 300 UNITS/3 ML VIAL SUBQ SCH ×6 (00:48→21:01)
[2021-08-03] MEDS: Ipratropium 1 PUFF INHALER IH SCH ×4 (03:18→21:46)
[2021-08-03] MEDS: Norepinephrine 4 MG/254 ML IV.SOLN IVC SCH ×11 (03:23→21:37)
[2021-08-03] MEDS: FentaNYL (PF) 1,000 MCG/100 ML IV.SOLN IVC SCH ×4 (03:57→20:46)
[2021-08-03] MEDS: Phenylephrine 10 MG in 0.9 % Sodium Chloride 250 ML IVC SCH ×5 (04:16→13:50)
[2021-08-03 04:27] LABS: ABG Base Excess 7 mEq/L (-2 to 3); ABG HCO3 38 mEq/L (21-27); ABG Oxygen Saturation 65 % (95-98); ABG PCO2 81 mmHg (35-45); ABG PH 7.28 pH Units (7.32-7.45); ABG PO2 40 mmHg (85-104); ABG TCO2 40 mEq/L (20-26); Blood Gas VT 430 cc
[2021-08-03] MEDS: Midazolam HCl 50 MG/100 ML IV.SOLN IVC SCH ×3 (04:46→20:03)
[2021-08-03 04:52] LABS: Alanine Aminotransferase 279 Units/L (7-52); Albumin 3.3 g/dL (3.5-5.7); Albumin/Globulin Ratio 1.4 (1.1-2.2); Alkaline Phosphatase 145 Units/L (34-104); Aspartate Amino Transferase 187 Units/L (13-39); BUN/Creatinine Ratio 63 (6-26); Bilirubin,Total 2.6 mg/dL (0.3-1.0); Blood Urea Nitrogen 71 mg/dL (6-20); Calcium 8.4 mg/dL (8.6-10.3); Carbon Dioxide 38 mEq/L (23-29); Chloride 99 mEq/L (98-107); Globulin 2.4 g/dL (2.4-3.5); Glucose 145 mg/dL (70-105); Osmolality,Calculated 323 (280-300); Potassium 5.1 mEq/L (3.5-5.1); Sodium 145 mEq/L (136-145); Total Protein 5.7 g/dL (6.4-8.9); eGFR For African Americans > 60 (> 60); eGFR For Non-African Americans 51 (> 60)
[2021-08-03 05:56] LABS: Hemoglobin 14.6 g/dL (11.5-15.4)
[2021-08-03 05:57] LABS: Hematocrit 49.2 % (35.3-44.9); Mean Corpuscular HGB Conc 29.7 g/dL (31.6-35.5); Mean Corpuscular Hemoglobin 28.1 pg (28.0-33.3); Mean Corpuscular Volume 94.8 fL (83.0-100.0); Mean Platelet Volume 12.3 fL (9.4-12.4); Platelet Count 290 K/mcL (140-400); Red Blood Count 5.19 M/mcL (3.82-4.97); Red Cell Distribution Width 15.1 % (11.5-14.5)
[2021-08-03 06:16] LABS: White Blood Count 44.8 K/mcL (4.3-11.1)
[2021-08-03] MEDS: Heparin 25,000UNIT/250ML 1/2NS 25,000 UNIT/250 ML IV.SOLN IVC SCH ×5 (07:44→22:37)
[2021-08-03] MEDS: Budesonide/Formoterol 160/4.5 1 PUFF INH IH SCH ×2 (08:11→21:47)
[2021-08-03] MEDS: Pantoprazole 40 MG VIAL IVP SCH (08:41)
[2021-08-03] MEDS: Docusate Oral Soln 100 MG/10 ML UDC GTUBE SCH (08:41)
[2021-08-03] MEDS: Furosemide 40 MG/4 ML VIAL IVP SCH ×2 (08:41→21:08)
[2021-08-03] MEDS: Chlorhexidine Rinse 15 ML MOUTHWASH MM SCH ×2 (08:41→21:08)
[2021-08-03] MEDS: Aspirin 81 MG TAB.CHEW GTUBE SCH (08:42)
[2021-08-03] MEDS: Cisatracurium 200 MG in 0.9 % Sodium Chloride 180 ML IVC SCH ×2 (10:17→19:15)
[2021-08-03 13:34] LABS: Magnesium 2.4 mg/dL (1.6-2.6); Phosphorous 5.6 mg/dL (2.7-4.5)
[2021-08-03] MEDS ORDERED: D10% in Water 500 ML IVC PRN (13:42)
[2021-08-03] MEDS ORDERED: Piperacillin/Tazobactam 3.375 GM in 0.9 % Sodium Chloride Mini Bag 100 ML IVPB SCH (16:00)
[2021-08-03] MEDS: Phenylephrine 50 MG in 0.9 % Sodium Chloride 250 ML IVC SCH (16:23)
[2021-08-03] MEDS ORDERED: Clinimix E 5%-20% SOLUTION 2,000 ML, Parenteral Amino Acid 10% 0 ML with MVI, adult wi... IVC SCH (17:00)
[2021-08-03] MEDS ORDERED: Vancomycin 2,000 MG/520 ML IV.SOLN IVPB ONE (17:00)
[2021-08-03] MEDS ORDERED: Clinimix 5%-20% SOLUTION 2,000 ML with MVI, adult with vitamin K 10 ML, Sodium Acetat... IVC SCH (17:00)
[2021-08-03] MEDS: Piperacillin/Tazobactam 3.375 GM in 0.9 % Sodium Chloride Mini Bag 100 ML IVPB SCH (17:10)
[2021-08-04] MEDS: Artificial Tears SOLN 15 ML BOTTLE BOTH EYES SCH ×4 (00:37→11:49)
[2021-08-04] MEDS: Insulin LISPRO 300 UNITS/3 ML VIAL SUBQ SCH ×4 (00:37→12:05)
[2021-08-04] MEDS: Piperacillin/Tazobactam 3.375 GM in 0.9 % Sodium Chloride Mini Bag 100 ML IVPB SCH ×2 (00:37→07:58)
[2021-08-04] MEDS: Dexmedetomidine HCl 400 MCG/100 ML MLS IVC SCH ×4 (01:30→12:37)
[2021-08-04] MEDS: Norepinephrine 4 MG/254 ML IV.SOLN IVC SCH ×5 (01:42→09:35)
[2021-08-04] MEDS: FentaNYL (PF) 1,000 MCG/100 ML IV.SOLN IVC SCH ×3 (02:00→12:37)
[2021-08-04] MEDS: Phenylephrine 50 MG in 0.9 % Sodium Chloride 250 ML IVC SCH ×3 (02:51→11:35)
[2021-08-04] MEDS: Midazolam HCl 50 MG/100 ML IV.SOLN IVC SCH ×2 (03:17→10:21)
[2021-08-04] MEDS: Ipratropium 1 PUFF INHALER IH SCH ×3 (04:01→15:15)
[2021-08-04 04:27] LABS: Magnesium 2.3 mg/dL (1.6-2.6); Phosphorous 4.3 mg/dL (2.7-4.5)
[2021-08-04 04:28] LABS: Albumin 2.6 g/dL (3.5-5.7); Albumin/Globulin Ratio 1.4 (1.1-2.2); Bilirubin,Total 1.5 mg/dL (0.3-1.0); Globulin 1.9 g/dL (2.4-3.5); Potassium 5.3 mEq/L (3.5-5.1); Total Protein 4.5 g/dL (6.4-8.9)
[2021-08-04 04:34] LABS: Hematocrit 42.2 % (35.3-44.9); Hemoglobin 12.1 g/dL (11.5-15.4); Mean Corpuscular HGB Conc 28.7 g/dL (31.6-35.5); Mean Corpuscular Hemoglobin 27.9 pg (28.0-33.3); Mean Corpuscular Volume 97.5 fL (83.0-100.0); Mean Platelet Volume 11.7 fL (9.4-12.4); Platelet Count 181 K/mcL (140-400); Red Blood Count 4.33 M/mcL (3.82-4.97); Red Cell Distribution Width 16.5 % (11.5-14.5)
[2021-08-04 04:34] LABS: ABG Base Excess 1 mEq/L (-2 to 3); ABG HCO3 31 mEq/L (21-27); ABG Oxygen Saturation 60 % (95-98); ABG PCO2 77 mmHg (35-45); ABG PH 7.21 pH Units (7.32-7.45); ABG PO2 39 mmHg (85-104); ABG TCO2 33 mEq/L (20-26); Blood Gas Modality ASSIST CONTROL; Blood Gas VT 430 cc
[2021-08-04 05:17] LABS: White Blood Count 39.6 K/mcL (4.3-11.1)
[2021-08-04] MEDS ORDERED: Vancomycin 1,500 MG/265 ML IV.SOLN IVPB SCH (06:00)
[2021-08-04] MEDS: Cisatracurium 200 MG in 0.9 % Sodium Chloride 180 ML IVC SCH ×2 (06:07→13:28)
[2021-08-04] MEDS: Budesonide/Formoterol 160/4.5 1 PUFF INH IH SCH (07:13)
[2021-08-04] MEDS: Docusate Oral Soln 100 MG/10 ML UDC GTUBE SCH (07:56)
[2021-08-04] MEDS: Chlorhexidine Rinse 15 ML MOUTHWASH MM SCH (07:56)
[2021-08-04] MEDS: Furosemide 40 MG/4 ML VIAL IVP SCH (07:57)
[2021-08-04] MEDS: Aspirin 81 MG TAB.CHEW GTUBE SCH (07:57)
[2021-08-04] MEDS: Pantoprazole 40 MG VIAL IVP SCH (07:57)
[2021-08-04] MEDS ORDERED: Norepinephrine 8 MG in 0.9 % Sodium Chloride 250 ML IVC SCH (10:00)
[2021-08-04] MEDS: Norepinephrine 8 MG in 0.9 % Sodium Chloride 250 ML IVC SCH ×2 (11:48→14:46)
[2021-08-04 12:09] VITALS: TEMP 101.4
[2021-08-04 15:02] VITALS: BP 38/30; PULSE 123
[2021-08-04 15:17] VITALS: O2SAT 74
[2021-08-04] MEDS ORDERED: Clinimix 5%-20% SOLUTION 2,000 ML with MVI, adult with vitamin K 10 ML, Sodium Acetat... IVC SCH (17:00)
[2021-08-05] MEDS ORDERED: Clinimix 5%-20% SOLUTION 2,000 ML with MVI, adult with vitamin K 10 ML, Sodium Acetat... IVC SCH (17:00)
== END 2021-08-04 18:35 | disposition expired | DRG 130 ==
LOC: CDU → SUATTDRO 17:40 → 3NENU 07-25 21:20 → ICNU 07-26 16:36
PROVIDERS: ADMIT Family Medicine; ATTEND Internal Medicine